=== PATIENT | male | born 1970 | race Caucasian/White ===

== ENCOUNTER → 2024-06-20 | Outpatient (CLI) | payer OTHER ==
--- NOTE | 2024-06-20 10:06 | HMCIMG ---
US RENAL SONOGRAM HISTORY: Pain COMPARISON: None TECHNIQUE: Renal and bladder ultrasound study was performed. Additional images were obtained over the region of interest in the right upper abdomen. FINDINGS: The right kidney measures 9.5 x 4.7 x 5.4 cm. The left kidney measures 10.4 x 5.7 x 6.1 cm. No evidence of hydronephrosis is seen of either kidney. Both kidneys are seen. Bladder is poorly distended. No definite mass lesion is seen over the region of interest in the right upper abdomen. IMPRESSION: 1. No hydronephrosis is seen.
== END | disposition home or self-care (01) ==
LOC: RAH 08:30
PROVIDERS: ATTEND Family Medicine
DX: N32.89 Other specified disorders of bladder (principal); R19.01 Right upper quadrant abdominal swelling, mass and lump; R10.11 Right upper quadrant pain
CPT/HCPCS: 76770